=== PATIENT | male | born 1985 | race American Indian/Alaskan Native ===

== ENCOUNTER 2021-09-08 09:05 | Emergency (ER) | payer SELFPAY ==
[2021-09-08 12:33] VITALS: BP 151/82
--- NOTE | 2021-09-08 12:35 | Emergency Department Report ---
ED Extremity Problem HPI - General Stated complaint: KNEE PAIN Time Seen by Provider: 09/08/21 12:28 Source: patient Mode of arrival: Ambulatory Limitations: No Limitations - History of Present Illness Initial comments: Patient is a 36-year-old male presents emergency room complaints of left knee pain that began last week. Patient states that he works in [employer] and is on his knees a lot. He states he noticed a little small area of swelling to the left knee and reports he had a small pimple to the knee. He states he has pain with palpation and has noticed some redness. He denies any numbness, weakness, fever, chills overnight. He denies any fall or injury. He denies being Anything any bites. No past medical history. No allergies medications - Related Data Previous Rx's Medication Instructions Recorded Last Taken Type Mupirocin [Bactroban 2% OINT] 1 applic TP TID #1 tube 09/08/21 Unknown Rx Naproxen 375 mg PO BID PRN #14 tab 09/08/21 Unknown Rx Sulfamethoxazole/Trimethoprim 1 each PO BID #14 tab 09/08/21 Unknown Rx [Bactrim DS TAB] Allergies Allergy/AdvReac Type Severity Reaction Status Date / Time No Known Allergies Allergy Unverified 09/08/21 12:32 ED Review of Systems ROS: Stated complaint: KNEE PAIN Other details as noted in HPI Comment: All other systems reviewed and negative ED Past Medical Hx - Medications Home Medications: Home Medications Medication Instructions Recorded Confirmed Last Taken Type Mupirocin [Bactroban 2% OINT] 1 applic TP TID #1 tube 09/08/21 Unknown Rx Naproxen 375 mg PO BID PRN #14 tab 09/08/21 Unknown Rx Sulfamethoxazole/Trimethoprim 1 each PO BID #14 tab 09/08/21 Unknown Rx [Bactrim DS TAB] ED Physical Exam - General Limitations: No Limitations General appearance: alert, in no apparent distress - Head Head exam: Present: atraumatic, normocephalic - Eye Eye exam: Present: normal appearance - ENT ENT exam: Present: mucous membranes moist - Respiratory Respiratory exam: Absent: respiratory distress, accessory muscle use - Neurological Exam Neurological exam: Present: alert, oriented X3 - Psychiatric Psychiatric exam: Present: normal affect, normal mood - Skin Skin exam: Present: warm, dry, other (small 0.5 cm pustule present to the left anterior knee, there is a 3 cm area of surrounding erythema and increased warmth, no bony ttp, FROM of the LLE, neurovascularly intact ) ED Course Vital Signs 09/08/21 12:32 Temperature 98.5 F Pulse Rate 104 H Respiratory 16 Rate Blood Pressure 151/82 [Right] O2 Sat by Pulse 98 Oximetry ED Medical Decision Making - Medical Decision Making Patient is a 36-year-old male presents emergency room complaints of left knee pain that began last week. Patient states that he works in [employer] and is on his knees a lot. He states he noticed a little small area of swelling to the left knee and reports he had a small pimple to the knee. He states he has pain with palpation and has noticed some redness. He denies any numbness, weakness, fever, chills overnight. He denies any fall or injury. He denies being Anything any bites. No past medical history. No allergies medications. vss. on exam: small 0.5 cm pustule present to the left anterior knee, there is a 3 cm area of surrounding erythema and increased warmth, no bony ttp, FROM of the LLE, neurovascularly intact. Examination appears consistent with cellulitis, no drainable abscess at this time. given prescription for medications. advised pt Please use medication as prescribed. Follow-up with your primary care doctor for reexamination. Return to emergency room immediately for any new or worsening symptoms including but not limited to worsening swelling, worsening redness, fever, vomiting, chills, etc. Critical care attestation.: If time is entered above; I have spent that time in minutes in the direct care of this critically ill patient, excluding procedure time. ED Disposition Clinical Impression: Cellulitis Qualifiers: Site of cellulitis: extremity Site of cellulitis of extremity: lower extremity Laterality: left Qualified Code(s): L03.116 - Cellulitis of left lower limb Disposition: HOME / SELF CARE / HOMELESS Is pt being admited?: No Does the pt Need Aspirin: No Condition: Stable Instructions: Cellulitis, Adult Additional Instructions: Please use medication as prescribed. Follow-up with your primary care doctor for reexamination. Return to emergency room immediately for any new or worsening symptoms including but not limited to worsening swelling, worsening redness, fever, vomiting, chills, etc. Prescriptions: Sulfamethoxazole/Trimethoprim [Bactrim DS TAB] 1 each PO BID #14 tab Mupirocin [Bactroban 2% OINT] 1 applic TP TID #1 tube Naproxen 375 mg PO BID PRN #14 tab PRN Reason: pain Referrals: CHAI MORALES MD [Staff Physician] - 3-5 Days [facility] [Provider Group] - 3-5 Days Forms: Work/School Release Form(ED) Time of Disposition: 12:35 Print Language: LATVIAN
== END 2021-09-08 13:26 | disposition home or self-care (01) ==
LOC: ED 09:05
DX: L03.116 Cellulitis of left lower limb (principal)
CPT/HCPCS: 99282